=== PATIENT | male | born 1980 | race Caucasian/White ===

== ENCOUNTER → 2021-06-09 11:04 | Outpatient (REF) | payer OTHER, SELFPAY | LOC: ANHLAB 11:04 | PROVIDERS: PCP Emergency Medicine; Visit Provider Nurse Practitioner | DX: R22.9 Localized swelling, mass and lump, unspecified (principal) | CPT/HCPCS: 88304 ==

== ENCOUNTER → 2021-08-06 11:15 | Outpatient (REF) | payer OTHER, SELFPAY | LOC: ANHLAB 11:15 | PROVIDERS: PCP Emergency Medicine; Visit Provider Nurse Practitioner | DX: R22.9 Localized swelling, mass and lump, unspecified (principal) | CPT/HCPCS: 88304 ==

== ENCOUNTER 2024-10-31 15:46 | Outpatient (CLI) | payer OTHER, SELFPAY ==
--- OUTSIDE RECORDS SUMMARY | 2021-03-18 13:22 | XMS_ITS | Continuity of Care Document ---
Author Organization [facility] Address [address] [place] [address] [place] [address] Phone Care Team Providers Care [employer] Consultant Name Role Phone Jaspal Urias MD Unavailable Unavailable Allergies, Adverse Reactions, Alerts Substance Reaction Status Criticality No Known Allergies Active No Inform ation Medications Medication Instructions Dosage Effective Dates (start - stop) Status Comments Nuvigil 50 mg tablet take 2 tablets in t he morning orally every day - Active omeprazole 20 mg capsule,delayed release take 1 capsule by oral route every day before a meal 20 MG - Active Procedures Procedure Date OFFICE/OUTPATIENT VISIT, EST OFFICE/OUTPATIENT VISIT, EST PREV VISIT, NEW, AGE 18-39 Advance Directives Directive Yes / No Effective Date File Name No Information Encounters Encounter Description Practice Location Reason(s) For Visit Diagnoses Date Provider Providers Copied on Encounter OFFICE/OUTPA TIENT VISIT, EST [facility], [address], [id number], tel:[phone] [facility] GERD1 (chief complaint) narcolepsy 1 (chief complaint) lipoma1 (chief complaint) back pain1 (chief complaint) NarcolepsyGERD w/o esophagitisLipomaLu mbago with sciatica, right side 2 Adonay Shay. [address], [id number] , [place]. tel:[phone] OFFICE/OUTPA TIENT VISIT, EST [facility], [address], [id number], [place] tel:[phone] [facility] chronic pain1 (chief complaint) Lumbago with sciatica, right side Sep-0 1 Adonay Shay. [address], [place], [place], [id number] , [place]. tel:[phone] PREV VISIT, NEW, AGE 18-39 [facility], [address], [place], [place], [id number], [place] [phone] [facility] physical (chief complaint) Encounter for general adult medical examination without abnormal findings Aug- 1 Adonay Shay. [address], [place], [place], [id number] , [place]. [phone] Family History Family Member Type Diagnosis Age At Onset Mother Problem Hypertension Brother Problem Alive and well Father Problem Hypertension Sister Problem Alive and well Payers Payer name Insurance type Covered green party ID Authoriza tion(s) No Information Social History Type Description Quantity Date Captured Comments Alcohol Use Details beer & liquor Caffeine Use Details Unknown Tobacco Use Status Current non-smoker Smoking Status Never smoker Sex Male Vital Signs Date / Time: Height Weight BMI Pulse Rate Blood Pressure Temperature Respiratory Rate Body Surface Area Head Circumference BMI percentile Pulse Ox Inhaled Ox 6:24 PM 69.00 in 234.00 lbs 34.5 6 kg/m eter (2) Chief Complaint And Reason For Visit From encounter dated '03/18/2021 18:22'. GERD1 (chief complaint). Description: Pt has chronic GERD for years but worse during last two weeks. Pt has been taking otc meds PRN Pt denies any abd pain or nausea, vomiting. Pt used to take anti-acid but has not had it for long time. narcolepsy1 (chief complaint). Description: Pt has chronic narcolepsy. Pt takes nuvigil and doing ok lipoma1 (chief complaint). Description: Pt has lipoma on left triceps and right flank area for several months but getting bigger and becomes painful. Pt eladio any redness or warmth or swelling or drainage Pt has history of lipoma removal. back pain1 (chief complaint). Description: Pt states that his back pain has improved and he has notnoticed much faviola lately Pt denies any sciatica or any saddle area paresthesia Pt denies any loss of bowel or bladder control Pt did not do MRI Plan Of Treatment Date Type Action Status Referral Ordered: Vishal Kramer -[facility] : Surgery (related to Lipoma) ordered Referral Referred To: Vishal Kramer [id number] [place] [address], [phone] Ordered: Referrals: [facility] : Surgery. Vishal Kramer. Evaluate and treat ordered Referral Ordered: MRI LUMBAR SPINE W/O DYE ordered History Of Present Illness Encounter Date Complaint History Of Prese nt Illness GERD1 Pt has chronic G ERD for years but worse during last two weeks. Pt has been taking otc meds PRN Pt denies any abd pain or nausea, vomiting. Pt used to take anti-acid but has not had it for long time. narcolepsy1 Pt has chronic n arcolepsy. Pt takes nuvigil and doing ok lipoma1 Pt has lipoma on left triceps and right flank area for several months but getting bigger and becomes painful. Pt eladio any redness or warmth or swelling or drainage Pt has history of lipoma removal. back pain1 Pt states that h is back pain has improved and he has not noticed much faviola lately Pt denies any sciatica or any saddle area paresthesia Pt denies any loss of bowel or bladder control Pt did not do MRI chronic pain1 Pt has chronic l ow back pain with right sciatica. Pt sometimes feels right leg weakness. Pt also has chronic right knee pain and IT band issue due to walking. Pt also has history of torn right hamstring. Pt told me he had MRi done of right knee which was normal. Pt suffered above injury during service. Pt was discharged with 90 % disability. Pt has been seeing chiropractor for above pain. Pt suffers from pain daily. Pt has not done MRi yet .Pt denies any saddle area paresthesia Pt denies any loss of bowel or bladder control. Pt needs to renew his [employer] [place] permit. Pt moved here from [place] recently . physical Pt needs annual physical pt has history of narcolepsy which was diagnosed with sleep study with [facility]. Pt has daytime hypersomnia. pt did not have sleep apnea. Pt takes nuvigil 100 mg Q am for the past the past 12 years and doing well. Pt needs refill. Pt c/o acute onset of L-spine and right side paraspinal muscle pain for 6 months after lifting something heavy. Pt notices radiation of pain to right buttock and to posterior thigh intermittently with certain movement. Pt denies any numbness and tingling pt denies any loss of bowel or bladder control. Pt had L spine x ray done by chiropractor and had some adjustment which did not help much., Pt neer tried any medication. Pt denies any leg weakness. pt states that the symptoms bother him every day. Pt denies any other complaints Instructions Date Instruction Additional Infor [place] No Information Assessments Type Assessment Date assessment Narcolepsy assessment GERD w/o esophagitis assessment Lipoma assessment Lumbago with sciatica, right daphney e Mental Status Date Cognitive Assessment Orientation - [place] ed to time, place, person, situation.
--- NOTE | ~2024-10-31 | MR_ITS ---
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 Whole-brain sequences included sagittal T1-weighted FSE, axial diffusion-weighted FS EPI, axial 3D SWAN, axial T2-weighted FLAIR Propeller, and axial T2-weighted Propeller. Small [id number] sequences included sagittal and coronal T1- weighted FSE centered at the pituitary. Postcontrast sequences included small [id number] coronal T1-weighted FSE in a time course and sagittal T1-weighted FSE and whole-brain axial T1-weighted FSE. Apparent diffusion coefficient (ADC) maps were created. COMPARISON: None. FINDINGS: There are no areas of restricted diffusion to suggest acute infarction. No intracranial hemorrhage or abnormal intracranial mass lesion. Pituitary appears normal with homogeneous enhancement throughout the sequence of post contrast imaging and with normal midline pituitary stalk. There are no intraparenchymal signal abnormalities seen on the other pulse sequences. The ventricles are symmetric and normal in size. There are no abnormal extra-axial fluid collections. Flow voids are seen in the cerebral arteries on the T2-weighted sequences consistent with their expected patency. Visualized orbits and soft tissues are unremarkable. There are no areas of abnormal enhancement on the post contrast images. IMPRESSION: 1. Normal MRI of the brain and pituitary gland. Reviewed, dictated and finalized at location A.
--- OUTSIDE RECORDS SUMMARY | 2024-10-31 07:13 | XMS_ITS | Continuity of Care Document ---
Author Name [facility] Organization [facility] Care Team Providers Care Ict Quality Assurance Engineer Name Role Phone [facility] Unavailable Unavailable Problems Combined list of problems from Department of Defense and Veterans Affairs facilities. It does not include entries that were removed or entered in error. Problem Status Onset Date Problem Type Date of Resolution Comments Source Epidermoid cyst of skin Active Condition 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 Major depressive disorder Active Condition [facility] Narcolepsy (SNOMED CT [id number]) Active Condition [facility] Obesity Active Condition Dec 04 13 Entered By: IRA THOMAS Comment: BMI 31 11/2012Sep 2013 Entered By: IRA THOMAS Comment: BMI 33 11/2013 [facility] SLEEP DISTURBANCE NOS Active Condition [facility] dermatitis Active Condition [facility] pityriasis rosea Active Condition Pat ient reassured [facility] pain in the thigh Active Condition [facility] Other Physical Therapy Active Condition DoD limb pain Active Condition DoD hip sprain hamstring insertion right Active Condition SM presents for review of x-rays as well as treatment this am. SM noted to have rotation of pelvic bones and c/o mild pain of lumbar spine as well as chronic right hamstring pain. Lumbo-pelvic gapping technique performed which properly aligned pelvic - no change in symptoms. SM to continue with HEP for hamstring strengthening/s tretching as well as lumbo-sacral stabilization/f lexibility exercises. SM to f/up prn. [facility] Patient Education - Injury Prevention Inactive Condition DoD Guidance: Concerns About Alcohol Use Inactive Condition DoD Guidance: Concerns About Tobacco Use Inactive Condition DoD Guidance: Concerns About Unsafe Sexual Practices Inactive Condition DoD Patient Counseling: Active Condition Do D Inquiry And Counseling: Medication Admin And Compliance Inactive Condition DoD visit for: occupational health / fitness exam Inactive Condition DoD pharyngitis Inactive Condition DoD viral syndrome Inactive Condition DoD visit for: ears / hearing exam Inactive Condition DoD visit for: services physical Active Condition DoD Body Mass Index Inactive Condition DoD Patient Education Dietary Active Condition DoD Observation For Suspected Mental Condition Inactive Condition DoD visit for: physical medical evaluation board (MEB) Active Condition DoD visit for: issue medical certificate Inactive Condition DoD myalgia and myositis Active Condition DoD chronic diarrhea of unknown origin Active Condition DoD chronic pain syndrome Active Condition DoD unspecified muscle strain Inactive Condition DoD dyslipidemia Active Condition DoD vitamin D deficiency Active Condition DoD assess patient condition work-related occupational disease Inactive Condition DoD Patient Education - Proper Use Of Medications Active Condition DoD Patient Education - Pre-Procedure Teaching Active Condition DoD Patient Education - Pain Management Active Condition DoD chronic pain Active Condition DoD muscle spasm Inactive Condition DoD excessive thirst / fluid intake (polydipsia) Active Condition DoD obesity Active Condition DoD headache Inactive Condition DoD eye symptoms Inactive Condition DoD heartburn Active Condition DoD visit for: preoperative gastrointestinal exam Inactive Condition DoD abnormal liver function test Active Condition DoD diarrhea Active Condition DoD bloating Active Condition DoD bursitis olecranon Active Condition DoD cubital tunnel syndrome Active Condition DoD Aftercare Following Surgery Of Digestive System Inactive Condition DoD nausea Inactive Condition DoD hemorrhoids internal Active Condition DoD joint pain, localized in the elbow Active Condition DoD segmental dysfunction of pelvic region Active Condition DoD X-Ray Inactive Condition DoD sacroiliac region sprain Inactive Condition DoD nonallopathic lesions thoracic Active Condition DoD nonallopathic lesions cervical Active Condition DoD lumbosacral plexus lesion Active Condition DoD back strain lumbar Inactive Condition Do D Administrative Evaluation Services Inactive Condition DoD Spectacles Services Fitting Monofocal Except For Aphakia Active Condition DoD conditions influencing health status Active Condition DoD biliary dyskinesia Active Condition DoD visit for: pre-procedural exam Inactive Condition DoD abdominal pain in multiple locations Active Condition DoD nausea with vomiting Inactive Condition DoD difficulty swallowing (dysphagia) Active Condition DoD depression Active Condition DoD Laboratory Studies Inactive Condition Do D visit for: screening exam bact/spirochetal STD Inactive Condition DoD Serum Enzyme Levels - ALT (SGPT) Elevated Active Condition DoD tardive dyskinesia drug-induced Inactive Condition DoD abdominal pain in the central upper belly (epigastric) Active Condition DoD abdominal pain in the right upper belly (RUQ) Active Condition DoD Observation For Suspected Medical Condition Inactive Condition DoD lumbago Active Condition DoD Visual Gray Test Nonspecific Abnormal Findings Active Condition DoD visit for: exam following treatment Active Condition DoD assessment of patient condition work-related Active Condition DoD Observation For Suspected Condition Inactive Condition DoD lower back pain Active Condition DoD Corneal Pigmentation Posterior Active Condition DoD astigmatism Active Condition DoD dysthymic disorder (depressive neurosis) Active Condition DoD narcolepsy Active Condition DoD visit: ears/hearing exam for hearing conservation, treatment Inactive Condition DoD axis V global assess of functioning (GAF) scale ___ (100-0) Active Condition DoD axis IV psychosocial and environmental problems Inactive Condition DoD no psychiatric diagnosis on axis III Inactive Condition DoD no psychiatric diagnosis on axis II Inactive Condition DoD atypical depressive disorder Active Condition DoD abdominal pain Active Condition DoD pruritus ani Active Condition DoD Bridgett thyroiditis (chronic lymphocytic) Active Condition DoD hypothyroidism Active Condition DoD hyperthyroidism Active Condition DoD anemia Active Condition DoD non-neoplastic nevus Active Condition DoD Removal Of Sutures Inactive Condition Do D warts common Active Condition DoD congenital anomalies of skin Active Condition DoD anal fissure Inactive Condition DoD benign skin neoplasm subcutaneous lipoma Inactive Condition DoD visit for: administrative purpose Active Condition DoD hemorrhoids internal with complication bleeding Active Condition DoD nonorganic sleep disorders Active Condition DoD Preventive Medicine Established Patient Checkup Adult 18-39 Years Active Condition DoD fatigue Active Condition DoD tendonitis Active Condition DoD sinusitis Inactive Condition improving. Emphasized need to finish antibiotics DoD backache Active Condition no hx. of trauma. Pt. needs to make appt. for spec. slot. Referred to PT for core strengthening exercises in mean time. Xrays of lumbar spine are neg. F/U in 4-6 or next avail. spec slot for new eval of LBP. DoD hip sprain hamstring insertion Active Condition DoD red blood in bowel movement (hematochezia) Inactive Condition pt is advised to do sitz baths and keep the area clean and dry DoD hemorrhoids Active Condition - Him Specialist al hemorrhoid, non-throbosed with small, non-bleeding fissure. DoD joint pain, localized in the knee Active Condition DoD thigh strain Active Condition DoD rolon splint Active Condition bilatera l, distal tibia. Pt evaluated in my office by Dr Palma, custom orthotics ordered. DoD astigmatism regular Active Condition Do D refractive error - myopia Active Condition DoD Medications Combined list of outpatient medications from Department of Defense and Veterans Affairs facilities.Medications provided include 1) outpatient medications from the last 15 months, and 2) patient-reported medications. Medication Details Route Status Patient Instructions Prescription Expires Prescription Number Last Dispense Date Ordering Provider Order Date Order Qty Source ARMODAFINIL (armodafini l), 250 MG, TABLET, ORAL, SANDOZ, 30 ea. BOTTLE Active [id number] 2023 30 Pharmac y Data Transac tion Service Facilit y Allergies, Adverse Reactions, Alerts Combined list of allergies from Department of Defense and Veterans Affairs facilities. It does not include entries that were removed or entered in error. Substance Category Reaction Severity Reaction type Status Date Reported Comments Source ASPIRIN (ASPIRIN) Drug allergy (disorder) Urticaria active 7 [facility] [place] ASPIRIN RELATED MEDICATIONS Propensity to adverse reactions to drug (finding) Urticaria active [address] [facility] BENTYL (DICYCLOMINE HCL) Drug allergy (disorder) Tardive dyskinesia active [address] [facility], [place] Immunizations Combined list of available immunizations from the Department of Defense and Veterans Affairs facilities. Immunization Series Date Given Administered By Site Reaction Lot Number CVX Code Drug Airplane Navigator Status Comments Source TDAP 2012 115 complet ed .[facility] INFLUENZA, UNSPECIFIED FORMULATION 2012 88 complet ed [place] [facility] influenza virus vaccine, unspecified formulation 1 2011 [id number] [employer] (MED) complet ed influenza virus vaccine, unspecifi ed formulati on DoD Influenza, seasonal, injectable 1 2010 [id number] 141 Unknown (UNK) comple t ed Influenza , seasonal, injectabl e DoD influenza virus vaccine, split virus (incl. purified surface antigen)-reti red CODE 1 2010 UNK 15 Unknown (UNK) comple t ed influenza virus vaccine, split virus (incl. purified surface antigen)- retired CODE DoD typhoid Vi capsular polysaccharid e vaccine 1 2010 [id number] Sanofi Pasteur (PMC) complet ed typhoid Vi capsular polysacch aride vaccine DoD Novel influenza-H1N 1-09, injectable 1 2009 [id number] 127 Other (OTH) complet ed Novel influenza -[id number], injectabl e DoD anthrax vaccine 1 2008 [id number] [employer] [place] ([facility]) complet ed anthrax vaccine DoD influenza virus vaccine, live, attenuated, for intranasal use 1 2008 [id number] MedImmune[employer] Inc. (MED) complet ed influenza virus vaccine, live, attenuate d, for intranasa l use DoD typhoid Vi capsular polysaccharid e vaccine 1 2007 [id number] Sanofi Pasteur (PMC) complet ed typhoid Vi capsular polysacch aride vaccine DoD hepatitis A and hepatitis B vaccine 3 2007 [id number] 104 Sanofi Pasteur (PMC) complet ed hepatitis A and hepatitis B vaccine DoD influenza virus vaccine, live, attenuated, for intranasal use 1 2007 [id number] [employer] (MED) complet ed influenza virus vaccine, live, attenuate d, for intranasa l use DoD hepatitis A and hepatitis B vaccine 2 2006 [id number] 104 Unknown (UNK) complet ed hepatitis A and hepatitis B vaccine DoD measles, mumps and rubella virus vaccine 1 2006 UNK 03 Unknown (UNK) Not Given measles, mumps and rubella virus vaccine DoD varicella virus vaccine 1 2006 UNK 21 Unknown (UNK) Not Given varicella virus vaccine DoD hepatitis A and hepatitis B vaccine 1 2006 [id number] 104 Unknown (UNK) complet ed hepatitis A and hepatitis B vaccine DoD poliovirus vaccine, inactivated 1 2006 [id number] [employer] [place] (SKB) complet ed polioviru s vaccine, inactivat ed DoD meningococcal polysaccharid e (groups A, C, Y and W-135) diphtheria toxoid conjugate vaccine (MCV4P) 1 2006 [id number] 114 Unknown (UNK) comple t ed meningoco ccal polysacch aride (groups A, C, Y and W-135) diphtheri a toxoid conjugate vaccine (MCV4P) DoD tetanus toxoid, reduced diphtheria toxoid, and acellular pertu is vaccine, adsorbed 1 2006 [id number] 115 Unknown (UNK) comple t ed tetanus toxoid, reduced diphtheri a toxoid, and acellular pertussis vaccine, adsorbed DoD Encounters Combined list of: 1) Encounters from Department of Veterans Affairs facilities going backup to the last 18 months, not all VA inpatient encounters are included; 2) Encounters from the Department of Defense facilities going backup to 280 months. Location Location Details Encounter Type Encounter Number Reason For Visit Attending Provider ADM Date DC Date Status Disposition Source [facility] Kenneth N[place]) OUTPAT[place] [id number] [place] TRACE DOZIER 11/23 Released w/o Limitations [facility] [place] [facility] [place]) OUTPATIENT [id number] [facility]- Cold Symptom s (F 03/25) EHSAN LUKE 01/17 Sick at Home/Quarter s [facility] [place] [facility] [place]) OUTPATIENT [id number] P F/U OLGA PALMA 01/19 [facility]ased w/o Limitations [facility] [place]) [facility] [place]) OUTPATIENT [id number] SELF CARE CLASS ONDINA JOHNSON 02/07 Released w/o Limitations [facility] [place]) [facility] [place]) [place] [id number] leg injury ERI HARTLEY Bret 04/03 Released with Work/Duty Limitations [facility] [place] [facility] [place]) [place] [id number] HIP SPRAIN HAMSTRI NG INSERTI ON RIGHT/ evaluat ion DERRELL GARCIA 04/05 Released w/o Limitations [facility] [place] [facility] [place]) [place] [id number] treatme nt WILLIAM DURHAM 04/07 Released w/o Limitations [facility] [place] [facility] [place] [id number] treatme nt WILLIAM DURHAM 04/10 Released w/o Limitations [facility] [place] [facility] [place]) [place] [id number] treatme WILLIAM Glaser 04/14 Released w/o Limitations [facility] [place] [facility] [place] [id number] SKIN RASH ERI HARTLEY 04/14 Released w/o Limitations [facility] [place] [facility] [place] [id number] treatme nt WILLIAM DURHAM 04/17 Released w/o Limitations [facility] [place] [facility] [place] [id number] treatme nt WILLIAM DURHAM 04/21 Released w/o Limitations [facility] [place] [facility] [place] OUTPATIENT [id number] CAROLINA Holland 04/28 Released w/o Limitations [facility] [place] [facility] [place] [id number] routine eye exam MICHELLEOLIVIA AKHIL CHANDA 05/28 Released w/o Limitations [facility] [place] [facility] [place] OUTPATIENT [id number] ([id number]) CHIN PAIN,PU LLED HAMSTRI NG ELIZ ESCOTO 06/25 Released w/o Limitations [facility] [place]) [facility] [place] OUTPATIENT [id number] HQ&A - RIGHT HAMSTRI NG and BILAT ANKLE PAIN DERRELL VAZQUEZ 07/04 Released w/o Limitations [facility] [place] [place] [facility] [place]) [place] [id number] Right hamstri ng pain YONNY BURDEN 07/04 Released with Work/Duty Limitations [facility] [place] [facility] [place]) [place] [id number] right knee YOSI THORNTON 07/06 Released with Work/Duty Limitations [facility] [place] [facility] [place] [id number] right knee YOSI THORNTON 07/11 Released with Work/Duty Limitations [facility] [place] [facility] [place]) [place] [id number] right knee ARTERYOSI KINSEY D 07/13 Released with Work/Duty Limitations [facility] [place] [facility] [place] OUTPATIENT [id number] EAST- [id number] BLEEDIN G HEMMIRO IDS SANDOVAL MYRICK F 07/13 Released w/o Limitations [facility] [place] [place] [id number] right knee YOSI THORNTON D 07/16 Released with Work/Duty Limitations [facility] [place] [facility] [place]) [place] [id number] Right hamstri ng pain BERTRAM, YONNY W 07/23 Released with Work/Duty Limitations [facility] [place] [facility] [place] [id number] Hemorrh oids LE PEDROZA A 07/24 Released w/o Limitations [facility] [place] [facility] [place]) [place] [id number] right knee YOSI THORNTON D 07/26 Released with Work/Duty Limitations [facility] [place] [facility] [place]) [place] [id number] Right hip pain BERTRAM, YONNY W 08/10 Released with Work/Duty Limitations [facility] [place] [facility] [place] [id number] Right hamstri ng pain BERTRAM, YONNY W 09/17 Released with Work/Duty Limitations [facility] [place] [facility] [place] [id number] right knee YOSI THORNTON D 09/18 Released with Work/Duty Limitations [facility] [place] [facility] [place] [id number] right knee ARTERYOSI KINSEY D 09/20 Released with Work/Duty Limitations [facility] [place] [facility] [place] [id number] right knee ARTERYOSI KINSEY D 09/25 Released with Work/Duty Limitations [facility] [place] [facility] [place] [id number] right knee ARTERTIO , YOSI D 09/27 Released with Work/Duty Limitations [facility] [place] [facility] [place] [id number] right knee ARTERTIO , YOSI D 10/02 Released with Work/Duty Limitations [facility] [place] [facility] [place] [id number] right knee ARTERYOSI KINSEY D 10/04 Released with Work/Duty Limitations [facility] [place] [facility] [place] [id number] right knee ARTERYOSI KINSEY D 10/09 Released with Work/Duty Limitations [facility] [place] [facility] [place]) [place] [id number] HIP SPRAIN HAMSTRI NG INSERTI ON RIGHT ELMER RUDDY Berumen 10/09 Released with Work/Duty Limitations [facility] [place] [facility] [place] [id number] right knee ARTERTIO , YOSI D 10/11 Released with Work/Duty Limitations [facility] [place] [facility] [place] [id number] right knee ARTERTIO , YOSI D 10/16 Released with Work/Duty Limitations [facility] [place] [facility] [place]) [place] [id number] Right hamstri ng muscle strain/ pull BERTRAM, YONNY W 10/19 Released with Work/Duty Limitations [facility] [place] [facility] [place] [id number] Right hamstri ng pain BERTRAM, YONNY W 10/23 Released with Work/Duty Limitations [facility] [place] [facility] [place] [id number] huey rt hamstri ng RUDDY PAYNE 10/24 Released with Work/Duty Limitations [facility] [place] [facility] [place] OUTPATIENT [id number] ([id number] )ER F/U [place] MAXWELL 11/01 Released w/o Limitations [facility] [place] [facility] [place] [id number] RUDDY PAYNE 11/22 Released with Work/Duty Limitations [facility] [place]([address]) OUTPATIENT [id number] PT ST UPSET STOMACH /SORE THROAT CORTEZ LEVY 01/21 Sick at Home/Quarter [place] Family Practic e) [place]) OUTPATIENT [id number] left leg strain ROSELYN GARCIA 02/22 Released w/o Limitations [place] Family Practic e) [place] FP Provider Support) OUTPATIENT [id number] pt/sts/ sleep concern LUIS CARLOS MA I 03/19 Released [place]/o Limitations [place] FP Provide r Support ) [place] Support [facility] Family [facility]) OUTPATIENT [id number] PHA Part II KENRICK BLANCA Roderick 03/20 Released w/o Limitations [place] Divisio n Support Command Family Practic e) [place] FP Provider Support) OUTPATIENT [id number] F/U LUIS CARLOS MA I 03/21 Released w/o Limitations [place] Provide r Support ) [place]Pulmon severino Disease[place] OUTPATIENT [id number] LINDSAY CHRIS 03/28 Released [place]o Limitations [place] Disease [place] Family Practice) TELE CONSULT [id number] 25yrs/r eq reffera l/surge ry FLORENTIN VILLALOBOS 04/24 [place] Family Practic e) [place] FP Provider Support) OUTPATIENT [id number] p/st for pulled muscle/ pain/gr XAVI Garcia 04/25 Released with Work/Duty Limitations [place] FP Provide r Support ) [place] [facility] OUTPATIENT [id number] PT STATES EYE EXAM RONNIE JAVIER 04/26 [place]ased [place]/o Limitations [place] ett-Opt [place]metry Clinic) [place] Family Practice AD) OUTPATIENT [id number] ORTIZ López 05/21 [place]ased [place]/o Limitations [place] 1 [facility] Family Practic e AD) [place] [id number] PER CONSULT ERIKA RIVAS 05/28 [place]ased [place]o Lim[place] Health [facility] Family Practice) OUTPATIENT [id number] FUP DESTINY SANABRIATON FLORENTIN Audrey 06/03 Released w/o Limitations [place] et Health [facility] 1 [facility] Family Practic e) [place] Family Practice AD) OUTPATIENT [id number] mole removal ORTIZ PETERSON 06/06 Released w/o Limitations [place] 1 [facility] Family Practic e AD) [place] 1 [facility] Practice AD) OUTPATIENT [id number] Suture removal ORTIZ PETERSON 06/13 Released w/o Limitations [place] 1 [facility] Family Practic e AD) [place], [place] [address](Sle ep Disorder [facility]) OUTPATIENT [id number] LINDSAY CHRIS 06/26 Released w/o Limitations [facility] [place] [address](S buster Disorde r [facility]) [place]) [place]PATIENT [id number] PHA/CON FIRMED FORM TENA BOWLES 06/28 Released [place]/o [place]) [place] [id number] f/u ERIKA RIVAS 07/17 [place]ased [place]) [place] [id number] f/u [phone] ERIKA RIVAS 08/30 [place]ased [place]) OUTPATIENT [id number] hyperth yrike BUENOCHANTELCELESTINO OLEA 11/20 [place] w/[place]itations [place] [id number] thyroid disorde r NINFA BROWN 01/20 [place] TELE CONSULT [id number] results NINFA BROWN 01/24 [place]) [place] [id number] interna l hemorrh oids/21 [phone] JACQUELINE KING 02/03 [place]ased [place] TELE CONSULT [id number] NINFA BROWN 02/17 [place] [facility] OUTPATIENT [id number] 12/07 Released w/o Limitations [place]PATIENT [id number] pre-d/t JACINDA Scott 03/26 [place] [place] [facility] [place]) [place] [id number] AXIS V GLOBAL ASSESS OF FUNCTIO BLANCA (GAF) SCALE ___ (100-0) NINFA BROWN 04/20 [place] [place] [facility]IENT [id number] ps for eye exam DELETED_VE [address] 05/04 [place] [facility] TELE CONSULT [id number] RMB/CB 1st report from a special ist has been scanned in moshea NINFA Thomas 05/07 [place] [place] [id number] PT STATES JASPER ARELLANO 05/15 Released with Work/Duty Limitations [place] [id number] JACQUELINE RODAS 05/18 [place] OUTPATIENT [id number] pt st dfe DELETED_[address] 05/26 [place] [place] [place] OUTPATIENT [id number] PT ST D-15 COLOR CATH EYE SEPARAT PORFIRIO &30-2VF DELETED_VE [address] 05/28 [place] [place] OUTPATIENT [id number] pt st gdx results repeat 30-2 vf DELETED_[address] 05/29 [place] [place]) [place] [id number] S/ BK CLASS WILLYAKHIL YI Kirsten 06/18 [place]) [place] [id number] DENEEN BRUCEМАРИНА Powers 07/18 [place] [id number] abdomin al pain LIZZIELUDWINTRISHJANY FORRESTSLY Berumen 07/18 [place] [id number] KO MONDRAGON 07/20 [place]) [place] [id number] STACIE FUENTES JR 07/23 [place]) OUTPATIENT [id number] ultraso und result BLANCA CHOUDHARY T 07/24 Released with Work/Duty [place]) OUTPATIENT [id number] trimber on the rightis de ASHLEY MARTINEZ V 07/28 [place]ick [place] Home[place]) OUTPATIENT [id number] pt state stomach pains and f/u for labs MC BARNES 07/30 [place]) OUTPATIENT [id number] abdomin al pain BLANCA CHOUDHARY T 08/05 Released with Work/Duty Limitations [place] TELE CONSULT [id number] NINFA BROWN 08/11 [place] [id number] f/u NINFA BROWN 08/11 [place] [id number] MIKEY MCBRIDE 08/13 [place]) OUTPATIENT [id number] phyical therapp y CHA GAMBLE 08/17 [place] [id number] red blood in bowel movemen t (hemato chezia) ARMANDO BOYER 08/26 [place]itations [place] [place]) [place] [id number] EGD / Colonos copy - nurse visit / ROSMERY Malik V 08/31 [place] [place] TELE CONSULT [id number] NINFA BROWN 09/03 [place]LE CONSULT [id number] call pt about abnorma l HIDA results ARMANDO BOYER 09/03 [place]) [place] [id number] F/U APPT KEVINNINFA Bridgette 09/16 [place]itations [place]) [place] [id number] BILIARY DYSKINE LUCIO ZENA CABRERA 09/22 [place] [id number] colon/e gd IRA FELDMAN 09/29 [place] [place] TELE CONSULT [id number] Post procedu re call back. TONEY BOTELLO 09/30 [place] Appointment [place] [id number] SPEC REPAIR DELETED_VE [address] 10/23 [place] [place] [place]) OUTPATIENT [id number] profile BLANCA CHOUDHARY 10/28 Released with Work/Duty Limitations [place]) [place] [id number] BACKACH E/ AKUA DICKERSON 10/29 [place] [id number] follow up / results ARMANDO BOYER 11/04 [place]o [place]itations [place] [id number] preop DOS:Nov 15 ZENA CABRERA 11/12 [place] [id number] SPEC BRITTNEY MCCLELLAND 12/01 [place]itations [place] [id number] postop/ sils ZENA Sexton 12/02 [place] [id number] CHANDA KIRK 12/04 [place]itations [place] [id number] NEIL ROMANO 12/07 [place]itations [place] [id number] MIKEY MCBRIDE 12/15 [place] Limitations [place] [id number] epigast fabi pain ZENA CABRERA 12/30 [place]itations [place] TELE CONSULT [id number] Pt states symptom s are still present even after removal of gallbla dder. ZENA CABRERA 01/07 [place]) OUTPATIENT [id number] f/up xrays TRAVIS BULLOCK JR 01/11 Released with Work/Duty Limitations [place] [id number] f/u AKUA DICKERSON 01/12 [place]o [place]itations [place] [id number] f/u per provide NINFA Abdalla 01/19 [place]ased w/o Limitations [place] [id number] follow up ARMANDO BOYER 01/27 [place]o Limitations [place] [place] TELE CONSULT [id number] NINFA BROWN 02/01 [place] OUTPATIENT [id number] follow up/ profile GAYLEMARISELA 02/01 [place]itations [place] [id number] nurse visit / egd IRA FELDMAN 02/08 [place]o Limitations [place] OUTPATIENT [id number] results /profil e TRAVIS BULLOCK JR 02/12 Released with Work/Duty Limitations [place] TELE CONSULT [id number] NINFA BROWN 02/15 [place] TELE CONSULT [id number] NINFA BROWN 03/02 [place]) OUTPATIENT [id number] profile update MELISSA WONG 03/04 [place] w[place]itations [place] [id number] EGD / VAA ROSMERY TOVAR V 03/09 [place]itations [place] [place] TELE CONSULT [id number] postop phone follow up for EGD. JAIME WARE 03/10 [place] App[place]ment [place] TELE CONS[place] [id number] NINFA BROWN 03/29 [place] [id number] follow up ARMANDO BOYER 03/30 [place]ased w[place]o Limitations [place] [place] TELE CONSULT [id number] LAB RESULTS NINFA BROWN 04/07 [place]) OUTPATIENT [id number] per TRAVIS Hahn JR 04/09 Released with Work/Duty Limitations [place] [place] [id number] S/ EYE EX SEALSAE A 04/15 [place]itations [place] TELE CONSULT [id number] NINFA BROWN P 04/19 [place] [id number] f/u NINFA BROWN 04/21 [place]ased w/o Limitations [place] TELE CONSULT [id number] NINFA BROWN 05/23 [place] TELE CONSULT [id number] NINFA BROWN 05/30 [place]) OUTPATIENT [id number] PROFILE RENEWAL TRAVIS BULLOCK JR 06/03 Released with Work/Duty Limitations [place] [id number] follow upARMANDO BO 06/07 [place]o Limitations [place] OUTPATIENT [id number] PRB PRE-REQ MARISELA GAYLE 06/09 [place]itations [place] OUTPATIENT [id number] ABDOMIN AL PAIN THE RIGHT UPPER BELLY RUBEN MENJIVAR 06/15 [place]ased [place] [place] [id number] WALK-IN ROBBI VARGHESE 06/20 [place]itations [place] [id number] LUIS CARLOS MCKAY 06/23 [place]ased w[place]o Limitations [place]) OUTPATIENT [id number] PROFILE RENEWAL TRAVIS BULLOCK JR 07/01 Released with Work/Duty Limitations [place] [id number] 1 month follow up ARMANDO BOYER 07/06 [place]ased w/o Limitations [place] [id number] F/U TRAVIS DEWITT JR 08/02 [place] w/o Limitations [place] [place] [id number] *n-v / flex sig / IRA Koehler 08/15 [place]ased w/o Limitations [place] [place]PATIENT [id number] EYE EXAM DELETED_VE [address] 08/31 [place]ased w[place]o Limitations [place] [facility] [id number] flex/si ROSMERY Dupree V 09/14 [place]ased w[place] Limitations [place] [place] TELE CONSULT [id number] Notes Entered by: JAIME AVELAR 17 Sep 2011 1044 ------- ------- ------- ------- -- Post procedu re follow up call JAIME AVELAR 09/16 [place] Appointment [place] OUTPATIENT [id number] Per RUBEN Hdez 10/28 [place]ased [place]itations [place] [place] OUTPATIENT [id number] Proc per MAJ Menjivar - daiana trigger pt under ultraso und RUBEN MENJIVAR 11/11 [place]ick [place] Home[place] [place] [id number] f/u ARMANDO Contreras 11/11 [place]ased w[place]o [place]itations [place] [id number] TRAVIS HOWARD JR 12/20 [place]ased [place]/o [place]itations [place] [place] OUTPATIENT [id number] F/U RUBEN MENJIVAR 01/11 [place]ased [place]itations [place] [place] [id number] Abdomin al wall strain/ NARSUM PER BRITTANY SHANKAR 01/30 Released with Work/Duty Limitations [place]PATIENT [id number] IPR PER BIBI FAITH 03/16 [place]ased [place]o Limitations [place] OUTPATIENT [id number] RFA-RUQ neuroma RUBEN MENJIVAR 04/10 [place] [place]) [place] [id number] Observa tion For Suspect ed Mental Conditi on KAYKAY WRIGHTLUDWIN Berumen 04/17 [place]o [place]itations [place]PAT[place] [id number] Notes Entered by: PRO DELUCA 09 Aug 2012 1458 ------- ------- ------- ------- -- annual ROBBI VARGHESE JR 08/09 [place]ased w/o Limitations [place] Procedures Combined list of: 1) Procedures from Department of Veterans Affairs facilities going back up to thelast 18 months, not all VA non-surgical procedures are included; 2) All procedures from the Department of Defense facilities. Procedure Procedure Type Code Date Perfomer Panchito Reed e POLYSOMNOGRAPHY; AGE 6 YEARS OR OLDER, SLEEP STAGING WITH 4 OR MORE ADDITIONAL PARAMETERS OF SLEEP, ATTENDED BY A TECHNOLOGIST 2008 [facility] THERAPEUTIC PROCEDURE, 1 OR MORE AREAS, EACH 15 MINUTES; THERAPEUTIC EXERCISES TO DEVELOP STRENGTH AND ENDURANCE, RANGE OF MOTION AND FLEXIBILITY 2007 [facility] THERAPEUTIC PROCEDURE, 1 OR MORE AREAS, EACH 15 MINUTES; THERAPEUTIC EXERCISES TO DEVELOP STRENGTH AND ENDURANCE, RANGE OF MOTION AND FLEXIBILITY 2007 [facility] APPLICATION OF A MODALITY TO 1 OR MORE AREAS; HOT OR COLD PACKS 2007 [facility] THERAPEUTIC PROCEDURE, 1 OR MORE AREAS, EACH 15 MINUTES; THERAPEUTIC EXERCISES TO DEVELOP STRENGTH AND ENDURANCE, RANGE OF MOTION AND FLEXIBILITY 2007 [facility] THERAPEUTIC PROCEDURE, 1 OR MORE AREAS, EACH 15 MINUTES; THERAPEUTIC EXERCISES TO DEVELOP STRENGTH AND ENDURANCE, RANGE OF MOTION AND FLEXIBILITY 2007 [facility] THERAPEUTIC PROCEDURE, 1 OR MORE AREAS, EACH 15 MINUTES; THERAPEUTIC EXERCISES TO DEVELOP STRENGTH AND ENDURANCE, RANGE OF MOTION AND FLEXIBILITY 2007 [facility] EDUCATIONAL SUPPLIES, SUCH BOOKS, TAPES, AND PAMPHLETS, FOR THE PATIENT'S EDUCATION AT COST TO PHYSICIAN OR OTHER QUALIFIED HEALTH HAND PACKER/PACKAGER 2006 [facility] TAPE, WATERPROOF, PER 18 SQUARE INCHES 2007 [facility] PHYSICAL THERAPY RE-EVALUATION 2007 [facility] THERAPEUTIC PROCEDURE, 1 OR MORE AREAS, EACH 15 MINUTES; THERAPEUTIC EXERCISES TO DEVELOP STRENGTH AND ENDURANCE, RANGE OF MOTION AND FLEXIBILITY 2007 [facility] THERAPEUTIC PROCEDURE, 1 OR MORE AREAS, EACH 15 MINUTES; THERAPEUTIC EXERCISES TO DEVELOP STRENGTH AND ENDURANCE, RANGE OF MOTION AND FLEXIBILITY 2007 [facility] THERAPEUTIC PROCEDURE, 1 OR MORE AREAS, EACH 15 MINUTES; THERAPEUTIC EXERCISES TO DEVELOP STRENGTH AND ENDURANCE, RANGE OF MOTION AND FLEXIBILITY 2007 [facility] THERAPEUTIC PROCEDURE, 1 OR MORE AREAS, EACH 15 MINUTES; THERAPEUTIC EXERCISES TO DEVELOP STRENGTH AND ENDURANCE, RANGE OF MOTION AND FLEXIBILITY 2007 [facility] APPLICATION OF A MODALITY TO 1 OR MORE AREAS; HOT OR COLD PACKS 2007 [facility]D APPLICATION OF A MODALITY TO 1 OR MORE AREAS; ELECTRICAL STIMULATION (MANUAL), EACH 15 MINUTES 2007 [facility] APPLICATION OF A MODALITY TO 1 OR MORE AREAS; HOT OR COLD PACKS 2007 DoD APPLICATION OF A MODALITY TO 1 OR MORE AREAS; HOT OR COLD PACKS 2007 [facility]D APPLICATION OF A MODALITY TO 1 OR MORE AREAS; HOT OR COLD PACKS 2007 [facility] PHYSICAL THERAPY RE-EVALUATION 2007 [facility] PHYSICAL THERAPY RE-EVALUATION 2007 [facility] SIGMOIDOSCOPY, FLEXIBLE; DIAGNOSTIC, INCLUDING COLLECTION OF SPECIMEN(S) BY BRUSHING OR WASHING, WHEN PERFORMED (SEPARATE PROCEDURE) 2007 [facility] PHYSICAL THERAPY RE-EVALUATION 2007 [facility] APPLICATION OF A MODALITY TO 1 OR MORE AREAS; HOT OR COLD PACKS 2007 [facility] APPLICATION OF A MODALITY TO 1 OR MORE AREAS; ULTRASOUND, EACH 15 MINUTES 2007 [facility] APPLICATION OF A MODALITY TO 1 OR MORE AREAS; HOT OR COLD PACKS 2007 DoD APPLICATION OF A MODALITY TO 1 OR MORE AREAS; HOT OR COLD PACKS 2007 DoD APPLICATION OF A MODALITY TO 1 OR MORE AREAS; HOT OR COLD PACKS 2007 DoD PHYSICAL THERAPY EVALUATION 2007 DoD FITTING OF SPECTACLES, EXCEPT FOR APHAKIA; MONOFOCAL 2007 DoD HANDLING AND/OR CONVEYANCE OF SPECIMEN FOR TRANSFER FROM THE PATIENT IN OTHER THAN AN OFFICE TO A LABORATORY (DISTANCE MAY BE INDICATED) 2006 DoD PATIENT EDUCATION, NOT OTHERWISE CLASSIFIED, NON-PHYSICIAN PROVIDER, GROUP, PER SESSION 2006 DoD PATIENT EDUCATION, NOT OTHERWISE CLASSIFIED, NON-PHYSICIAN PROVIDER, GROUP, PER SESSION 2006 [facility] HEPATITIS A AND HEPATITIS B VACCINE (HEPA-HEPB), ADULT DOSAGE, FOR INTRAMUSCULAR USE 2006 DoD PATIENT EDUCATION, NOT OTHERWISE CLASSIFIED, NON-PHYSICIAN PROVIDER, GROUP, PER SESSION 2006 [facility] BUPRENORPHINE IMPLANT, 74.2 MG 2006 DoD FITTING OF SPECTACLES, EXCEPT FOR APHAKIA; MONOFOCAL 2006 DoD AUDIOMETRIC TESTING OF GROUPS 2012 DoD PSYCHOTHERAPY, 30 MINUTES WITH PATIENT WHEN PERFORMED WITH AN EVALUATION AND MANAGEMENT SERVICE (LIST SEPARATELY IN ADDITION TO THE CODE FOR PRIMARY PROCEDURE) 2012 DoD PSYCHOTHERAPY, 45 MINUTES WITH PATIENT 2012 [facility] MEDICAL NUTRITION THERAPY; GROUP (2 OR MORE INDIVIDUAL(S)), EACH 30 MINUTES 2012 DoD INJECTION, TRIAMCINOLONE ACETONIDE, NOT OTHERWISE SPECIFIED, 10 MG 2012 DoD PSYCHIATRIC DIAGNOSTIC EVALUATION 2012 [facility] PSYCHIATRIC DIAGNOSTIC EVALUATION WITH MEDICAL SERVICES 2012 DoD PSYCHIATRIC DIAGNOSTIC EVALUATION WITH MEDICAL SERVICES 2012 DoD INJECTION, TRIAMCINOLONE ACETONIDE, NOT OTHERWISE SPECIFIED, 10 MG 2011 DoD COORDINATED CARE FEE, MAINTENANCE RATE 2011 DoD UNLISTED SPECIAL SERVICE, PROCEDURE OR REPORT 2011 DoD FITTING OF SPECTACLES, EXCEPT FOR APHAKIA; MONOFOCAL 2011 DoD INDIVIDUAL PSYCHOTHERAPY, INSIGHT ORIENTED, BEHAVIOR MODIFYING AND/OR SUPPORTIVE, IN AN OFFICE OR OUTPATIENT FACILITY, APPROXIMATELY 45 TO 50 MINUTES [id number] W THE PATIENT; W MED EVAL & MGT SER 2011 DoD COORDINATED CARE FEE, MAINTENANCE RATE 2011 DoD INDIVIDUAL PSYCHOTHERAPY, INSIGHT ORIENTED, BEHAVIOR MODIFYING AND/OR SUPPORTIVE, IN AN OFFICE OR OUTPATIENT FACILITY, APPROXIMATELY 45 TO 50 MINUTES [id number] W THE PATIENT; W MED EVAL & MGT SER 2011 DoD AUDIOMETRIC TESTING OF GROUPS 2011 DoD COORDINATED CARE FEE, MAINTENANCE RATE 2011 DoD TELE ASSESS & MGT SRV PROV QUAL NONPHYS HLTH CARE PRO TO EST PAT,PARENT,GUARD NOT ORIG REL ASSESS & MGT SRV PROV W/IN PREV 7 DAYS NOR LEAD ASSESS & MGT SRV/PX W/IN NXT 24 HR/SOON APT;5-10 MIN MED DIS 2011 DoD INDIVIDUAL PSYCHOTHERAPY, INSIGHT ORIENTED, BEHAVIOR MODIFYING AND/OR SUPPORTIVE, IN AN OFFICE OR OUTPATIENT FACILITY, APPROXIMATELY 45 TO 50 MINUTES [id number] W THE PATIENT; W MED EVAL & MGT SER 2011 DoD TELE ASSESS & MGT SRV PROV QUAL NONPHYS HLTH CARE PRO TO EST PAT,PARENT,GUARD NOT ORIG REL ASSESS & MGT SRV PROV W/IN PREV 7 DAYS NOR LEAD ASSESS & MGT SRV/PX W/IN NXT 24 HR/SOON APT;5-10 MIN MED DIS 2011 DoD TELE ASSESS & MGT SRV PROV QUAL NONPHYS HLTH CARE PRO TO EST PAT,PARENT,GUARD NOT ORIG REL ASSESS & MGT SRV PROV W/IN PREV 7 DAYS NOR LEAD ASSESS & MGT SRV/PX W/IN NXT 24H/SOON APT; 11-20 MIN MED DIS 2011 DoD DETERMINATION OF REFRACTIVE STATE 2011 DoD COORDINATED CARE FEE, MAINTENANCE RATE 2011 DoD INDIVIDUAL PSYCHOTHERAPY, INSIGHT ORIENTED, BEHAVIOR MODIFYING AND/OR SUPPORTIVE, IN AN OFFICE OR OUTPATIENT FACILITY, APPROXIMATELY 45 TO 50 MINUTES [id number] W THE PATIENT; W MED EVAL & MGT SER 2011 DoD COORDINATED CARE FEE, MAINTENANCE RATE 2011 DoD UNLISTED SPECIAL SERVICE, PROCEDURE OR REPORT 2011 DoD INDIVIDUAL PSYCHOTHERAPY, INSIGHT ORIENTED, BEHAVIOR MODIFYING AND/OR SUPPORTIVE, IN AN OFFICE OR OUTPATIENT FACILITY, APPROXIMATELY 45 TO 50 MINUTES [id number] WITH THE PATIENT 2010 DoD COORDINATED CARE FEE, MAINTENANCE RATE 2010 DoD INDIVIDUAL PSYCHOTHERAPY, INSIGHT ORIENTED, BEHAVIOR MODIFYING AND/OR SUPPORTIVE, IN AN OFFICE OR OUTPATIENT FACILITY, APPROXIMATELY 45 TO 50 MINUTES [id number] W THE PATIENT; W MED EVAL & MGT SER 2010 DoD COORDINATED CARE FEE, MAINTENANCE RATE 2010 DoD POSTOPERATIVE FOLLOW-UP VISIT, NORMALLY INCLUDED IN THE SURGICAL PACKAGE, INDICATE THAT EVALUATION & MANAGEMENT SERVICE WAS PERFORMED DURING A POSTOPERATIVE PERIOD REASON RELATED ORIGINAL PROCEDURE 2010 DoD INDIVIDUAL PSYCHOTHERAPY, INSIGHT ORIENTED, BEHAVIOR MODIFYING AND/OR SUPPORTIVE, IN AN OFFICE OR OUTPATIENT FACILITY, APPROXIMATELY 45 TO 50 MINUTES [id number] WITH THE PATIENT 2010 DoD INJECTION, MORPHINE SULFATE, UP TO 10 MG 2010 DoD INDIVIDUAL PSYCHOTHERAPY, INSIGHT ORIENTED, BEHAVIOR MODIFYING AND/OR SUPPORTIVE, IN AN OFFICE OR OUTPATIENT FACILITY, APPROXIMATELY 45 TO 50 MINUTES [id number] W THE PATIENT; W MED EVAL & MGT SER 2010 DoD INTRAVENOUS INFUSION, HYDRATION; INITIAL, 31 MINUTES TO 1 HOUR 2010 DoD EXERCISE EQUIPMENT 2010 DoD INDIVIDUAL PSYCHOTHERAPY, INSIGHT ORIENTED, BEHAVIOR MODIFYING AND/OR SUPPORTIVE, IN AN OFFICE OR OUTPATIENT FACILITY, APPROXIMATELY 45 TO 50 MINUTES [id number] WITH THE PATIENT 2010 DoD COORDINATED CARE FEE, MAINTENANCE RATE 2010 DoD UNLISTED SPECIAL SERVICE, PROCEDURE OR REPORT 2010 DoD INDIVIDUAL PSYCHOTHERAPY, INSIGHT ORIENTED, BEHAVIOR MODIFYING AND/OR SUPPORTIVE, IN AN OFFICE OR OUTPATIENT FACILITY, APPROXIMATELY 45 TO 50 MINUTES [id number] WITH THE PATIENT 2010 [facility] APPLICATION OF A MODALITY TO 1 OR MORE AREAS; HOT OR COLD PACKS 2010 DoD REPAIR AND REFITTING SPECTACLES; EXCEPT FOR APHAKIA 2010 DoD TELE ASSESS & MGT SRV PROV QUAL NONPHYS HLTH CARE PRO TO EST PAT,PARENT,GUARD NOT ORIG REL ASSESS & MGT SRV PROV W/IN PREV 7 DAYS NOR LEAD ASSESS & MGT SRV/PX W/IN NXT 24 HR/SOON APT;5-10 MIN MED DIS 2010 DoD TELE ASSESS & MGT SRV PROV QUAL NONPHYS HLTH CARE PRO TO EST PAT,PARENT,GUARD NOT ORIG REL ASSESS & MGT SRV PROV W/IN PREV 7 DAYS NOR LEAD ASSESS & MGT SRV/PX W/IN NXT 24 HR/SOON APT;5-10 MIN MED DIS 2010 DoD UNLISTED SPECIAL SERVICE, PROCEDURE OR REPORT 2010 DoD INDIVIDUAL PSYCHOTHERAPY, INSIGHT ORIENTED, BEHAVIOR MODIFYING AND/OR SUPPORTIVE, IN AN OFFICE OR OUTPATIENT FACILITY, APPROXIMATELY 45 TO 50 MINUTES [id number] WITH THE PATIENT 2010 DoD INDIVIDUAL PSYCHOTHERAPY, INSIGHT ORIENTED, BEHAVIOR MODIFYING AND/OR SUPPORTIVE, IN AN OFFICE OR OUTPATIENT FACILITY, APPROXIMATELY 20 TO 30 MINUTES [id number] W THE PATIENT; W MED EVAL & MGT SER 2010 DoD TELE ASSESS & MGT SRV PROV QUAL NONPHYS TH CARE PRO TO EST PAT,PARENT,GUARD NOT ORIG REL ASSESS & MGT SRV PROV W/IN PREV 7 DAYS NOR LEAD ASSESS & MGT SRV/PX W/IN NXT 24 HR/SOON APT;5-10 MIN MED DIS 2010 DoD INDIVIDUAL PSYCHOTHERAPY, INSIGHT ORIENTED, BEHAVIOR MODIFYING AND/OR SUPPORTIVE, IN AN OFFICE OR OUTPATIENT FACILITY, APPROXIMATELY 45 TO 50 MINUTES [id number] WITH THE PATIENT 2010 DoD INJECTION, DIPHENHYDRAMINE HCL, UP TO 50 MG 2010 DoD SKIN TEST; TUBERCULOSIS, INTRADERMAL 2010 DoD SCREENING TEST OF VISUAL ACUITY, QUANTITATIVE, BILATERAL 2010 DoD INDIVIDUAL PSYCHOTHERAPY, INSIGHT ORIENTED, BEHAVIOR MODIFYING AND/OR SUPPORTIVE, IN AN OFFICE OR OUTPATIENT FACILITY, APPROXIMATELY 20 TO 30 MINUTES [id number] W THE PATIENT; W MED EVAL & MGT SER 2010 DoD COLLECTION OF VENOUS BLOOD BY VENIPUNCTURE 2010 DoD ULTRASOUND, ABDOMINAL, REAL TIME WITH IMAGE DOCUMENTATION; LIMITED (EG, SINGLE ORGAN, QUADRANT, FOLLOW-UP) 2010 DoD INTRODUCTION OF NEEDLE OR INTRACATHETER, VEIN 2010 DoD INDIVIDUAL PSYCHOTHERAPY, INSIGHT ORIENTED, BEHAVIOR MODIFYING AND/OR SUPPORTIVE, IN AN OFFICE OR OUTPATIENT FACILITY, APPROXIMATELY 20 TO 30 MINUTES [id number] W THE PATIENT; W MED EVAL & MGT SER 2010 DoD EDUCATION &TRAINING, PATIENT SELF-MGT QUALIFIED, NONPHYSICIAN HEALTH HAND PACKER/PACKAGER USING STANDARDIZED CURRICULUM, [id number] W THE PATIENT (COULD INCL CAREGIVER/FAMILY) EA 30 MIN; 5-8 PATIENTS 2010 DoD INDIVIDUAL PSYCHOTHERAPY, INSIGHT ORIENTED, BEHAVIOR MODIFYING AND/OR SUPPORTIVE, IN AN OFFICE OR OUTPATIENT FACILITY, APPROXIMATELY 45 TO 50 MINUTES [id number] WITH THE PATIENT 2010 DoD INDIVIDUAL PSYCHOTHERAPY, INSIGHT ORIENTED, BEHAVIOR MODIFYING AND/OR SUPPORTIVE, IN AN OFFICE OR OUTPATIENT FACILITY, APPROXIMATELY 75 TO 80 MINUTES [id number] WITH THE PATIENT 2010 DoD INDIVIDUAL PSYCHOTHERAPY, INSIGHT ORIENTED, BEHAVIOR MODIFYING AND/OR SUPPORTIVE, IN AN OFFICE OR OUTPATIENT FACILITY, APPROXIMATELY 45 TO 50 MINUTES [id number] WITH THE PATIENT 2010 DoD SCANNING COMPUTERIZED OPHTHALMIC DIAGNOSTIC IMAGING, POSTERIOR SEGMENT, WITH INTERPRETATION AND REPORT, UNILATERAL OR BILATERAL; OPTIC NERVE 2010 [facility] VISUAL FIELD EXAM,UNILAT/BI,INTE RP&REP;EXT EXM(EG,GOLDMANN VIS FLD,AT LEAST 3 ISOP PLOT&STAT DET W/IN TAI 30DEG/QUANT,AUTO THRSH SEVERIANO,OCT G-1,32/42,HUMP VIS FLD ANAL FULL THRSH 30-2,24-2, OR 3060-2) 2010 [facility] OPHTHALMOLOGICAL SERVICES: MEDICAL EXAMINATION AND EVALUATION, WITH INITIATION OR CONTINUATION OF DIAGNOSTIC AND TREATMENT PROGRAM; COMPREHENSIVE, ESTABLISHED PATIENT, 1 OR MORE VISITS 2010 [facility] INDIVIDUAL PSYCHOTHERAPY, INSIGHT ORIENTED, BEHAVIOR MODIFYING AND/OR SUPPORTIVE, IN AN OFFICE OR OUTPATIENT FACILITY, APPROXIMATELY 45 TO 50 MINUTES [id number] WITH THE PATIENT 2010 DoD PSYCHIATRIC DIAGNOSTIC INTERVIEW EXAMINATION 2010 DoD INDIVIDUAL PSYCHOTHERAPY, INSIGHT ORIENTED, BEHAVIOR MODIFYING AND/OR SUPPORTIVE, IN AN OFFICE OR OUTPATIENT FACILITY, APPROXIMATELY 45 TO 50 MINUTES [id number] WITH THE PATIENT 2010 [facility] FITTING OF SPECTACLES, EXCEPT FOR APHAKIA; MONOFOCAL 2010 DoD INDIVIDUAL PSYCHOTHERAPY, INSIGHT ORIENTED, BEHAVIOR MODIFYING AND/OR SUPPORTIVE, IN AN OFFICE OR OUTPATIENT FACILITY, APPROXIMATELY 45 TO 50 MINUTES [id number] WITH THE PATIENT 2010 DoD INDIVIDUAL PSYCHOTHERAPY, INSIGHT ORIENTED, BEHAVIOR MODIFYING AND/OR SUPPORTIVE, IN AN OFFICE OR OUTPATIENT FACILITY, APPROXIMATELY 45 TO 50 MINUTES [id number] WITH THE PATIENT 2010 DoD INDIVIDUAL PSYCHOTHERAPY, INSIGHT ORIENTED, BEHAVIOR MODIFYING AND/OR SUPPORTIVE, IN AN OFFICE OR OUTPATIENT FACILITY, APPROXIMATELY 45 TO 50 MINUTES [id number] WITH THE PATIENT 2010 DoD INDIVIDUAL PSYCHOTHERAPY, INSIGHT ORIENTED, BEHAVIOR MODIFYING AND/OR SUPPORTIVE, IN AN OFFICE OR OUTPATIENT FACILITY, APPROXIMATELY 45 TO 50 MINUTES [id number] WITH THE PATIENT 2010 DoD INDIVIDUAL PSYCHOTHERAPY, INSIGHT ORIENTED, BEHAVIOR MODIFYING AND/OR SUPPORTIVE, IN AN OFFICE OR OUTPATIENT FACILITY, APPROXIMATELY 45 TO 50 MINUTES [id number] WITH THE PATIENT 2010 [facility] INDIVIDUAL PSYCHOTHERAPY, INSIGHT ORIENTED, BEHAVIOR MODIFYING AND/OR SUPPORTIVE, IN AN OFFICE OR OUTPATIENT FACILITY, APPROXIMATELY 45 TO 50 MINUTES [id number] WITH THE PATIENT 2010 [facility] INDIVIDUAL PSYCHOTHERAPY, INSIGHT ORIENTED, BEHAVIOR MODIFYING AND/OR SUPPORTIVE, IN AN OFFICE OR OUTPATIENT FACILITY, APPROXIMATELY 45 TO 50 MINUTES [id number] W THE PATIENT; W MED EVAL & MGT SER 2010 [facility] INDIVIDUAL PSYCHOTHERAPY, INSIGHT ORIENTED, BEHAVIOR MODIFYING AND/OR SUPPORTIVE, IN AN OFFICE OR OUTPATIENT FACILITY, APPROXIMATELY 45 TO 50 MINUTES [id number] WITH THE PATIENT 2010 [facility] AUDIOMETRIC TESTING OF GROUPS 2010 [facility] INDIVIDUAL PSYCHOTHERAPY, INSIGHT ORIENTED, BEHAVIOR MODIFYING AND/OR SUPPORTIVE, IN AN OFFICE OR OUTPATIENT FACILITY, APPROXIMATELY 20 TO 30 MINUTES [id number] WITH THE PATIENT 2010 [facility] TYPHOID VACCINE, ACETONE-KILLED, DRIED (AKD), FOR SUBCUTANEOUS USE (U.S. ) 2010 [facility] ANOSCOPY; DIAGNOSTIC, INCLUDING COLLECTION OF SPECIMEN(S) BY BRUSHING OR WASHING, WHEN PERFORMED (SEPARATE PROCEDURE) 2008 [facility] ANTHRAX VACCINE, FOR SUBCUTANEOUS OR INTRAMUSCULAR USE 2008 [facility] AUDIOMETRIC TESTING OF GROUPS 2008 [facility] SCREENING TEST OF VISUAL ACUITY, QUANTITATIVE, BILATERAL 2008 [facility] EXCISION, BENIGN LESION INCLUDING MARGINS, EXCEPT SKIN TAG (UNLESS LISTED ELSEWHERE), TRUNK, ARMS OR LEGS; EXCISED DIAMETER 1.1 TO 2.0 CM 2008 DoD DESTRUCTION (EG, LASER SURGERY, ELECTROSURGERY, CRYOSURGERY, CHEMOSURGERY, SURGICAL CURETTEMENT), OF BENIGN LESIONS OTHER THAN SKIN TAGS OR CUTANEOUS VASCULAR PROLIFERATIVE LESIONS; UP TO 14 LESIONS 2008 DoD FITTING OF SPECTACLES, EXCEPT FOR APHAKIA; MONOFOCAL 2008 DoD PHYS/OTH QUALIFIED HEALTH HAND PACKER/PACKAGER QUALIFIED,EDUCATION ,TRAIN,LICENSURE/RE GULATION (WHEN APPLICABLE) EDUC SER RENDERED TO PATS IN A GRP SETTING (EG,,OBESIT Y,OR DIABETIC INSTRUCT) 2008 [facility] AUDIOMETRIC TESTING OF GROUPS 2008 DoD Psychotherapy Indiv Approx 45 Min W/ Medical Evaluation & Management Psychotherapy Indiv Approx 45 Min W/ Medical Evaluation & Management [id number] 2010 [facility] Audiometry Group Testing Audiometry Group Testing [id number] 2010 JACINDA BERRY [facility] Clinical Social Work Individual Outpatient Counseling 30 Minutes Clinical Social Work Individual Outpatient Counseling 30 Minutes [id number] 2010 NAGI ORTIZ [facility] Fiberoptic Examinations Anoscopy Fiberoptic Examinations Anoscopy 03028 2008 JACQUELINE KING [facility] Polysomnography With Four Or More Additional Sleep Parameters 2008 JACQUELINE SHAW [facility] Excision Of Lesion Trunk Benign 1.1 to 2cm Excision Of Lesion Trunk Benign 1.1 to 2cm 38633 2008 ORTIZ PETERSON [facility] Destruction Of Flat Warts By Cryosurgery Up To 14 Lesions 2008 ORTIZ PETERSON [facility] Spectacles Services Fitting Monofocal Except For Aphakia Spectacles Services Fitting Monofocal Except For Aphakia [id number] 2008 RONNIE JAVIER [facility] Measurements Taken [facility] Ophthalmological New Patient Start Comprehensive Care Ophthalmological New Patient Start Comprehensive Care [id number] 2008 RONNIE JAVIER Determination Of Refractive State Determination Of Refractive State 40067 2008 RONNIE JAVIER Tape, waterproof, per 18 sq. in. 2007 BERTRAM YONNY W [facility] Orthopedic Strapping Orthopedic Strapping 14081 2007 BERTRAM YONNY W x10 min - kinesiotaping for Lumbo-sacral pain [facility] Osteopathic Manip Treatment (OMT) 1-2 Body Regions Involved Osteopathic Manip Treatment (OMT) 1-2 Body Regions Involved 41390 2007 JOSE BURDENT W [facility]am[facility] Tape, waterproof, per 18 sq. in. 2007 BERTRAM YONNY W [facility] Orthopedic Strapping Orthopedic Strapping 96771 2007 BERTARM YONNY W x10 min - kinesiotaping for SI dysfunction/ lumbo-sacral pain DoD Osteopathic Manip Treatment (OMT) 1-2 Body Regions Involved Osteopathic Manip Treatment (OMT) 1-2 Body Regions Involved 42752 2007 JOSE BURDENT W x10 min - lumbo-pelvic gapping technique. [facility] Physical Therapy Service Re-Evaluation Physical Therapy Service Re-Evaluation 65090 2007 YONNY BURDEN W DoD Modalities Heat Hot Packs Modalities Heat Hot Packs 05757 2007 YOSI THORNTON 20m r knee DoD Physical Therapy: ___ Se ion Segments, 15 Minutes Each Physical Therapy: ___ Session Segments, 15 Minutes Each 31057 2007 YOSI THORNTON 10m DoD Mobilization Soft Ti ue Mobilization Soft Tissue 36772 2007 YOSI THORNTON x15 min - soft tissue mobilization/MFR to L hamstring DoD Physical Therapy Mobilization Joint Physical Therapy Mobilization Joint 60276 2007 YOSI THORNTON DoD Modalities Heat Hot Packs Modalities Heat Hot Packs 07573 2007 YOSI THORNTON 20m r knee DoD Physical Therapy: ___ Se ion Segments, 15 Minutes Each Physical Therapy: ___ Session Segments, 15 Minutes Each 84316 2007 YOSI THORNTON 10m DoD Physical Therapy: ___ Se ion Segments, 15 Minutes Each Physical Therapy: ___ Session Segments, 15 Minutes Each 65972 2007 YOSI THORNTON 10m DoD Physical Therapy Mobilization Joint Physical Therapy Mobilization Joint 29389 2007 YOSI THORNTON DoD Modalities Heat Hot Packs Modalities Heat Hot Packs 07369 2007 YOSI THORNTON 20m r knee DoD Physical Therapy: ___ Se ion Segments, 15 Minutes Each Physical Therapy: ___ Session Segments, 15 Minutes Each 15991 2007 YOSI THORNTON 10m DoD Modalities Heat Hot Packs Modalities Heat Hot Packs 22861 2007 YOSI THORNTON 20m r knee DoD Physical Therapy Mobilization Joint Physical Therapy Mobilization Joint 87534 2007 YOSI THORNTON DoD Modalities Electrical Stimulation Device Placement Modalities Electrical Stimulation Device Placement 85167 2007 YOSI THORNTON 8m w/us r knee DoD Modalities Cryotherapy Cold Packs Modalities Cryotherapy Cold Packs 09783 2007 YOSI THORNTON 10m r knee DoD Modalities Ultrasound Modalities Ultrasound 55280 2007 YOSI THORNTON 8m w/estim r knee DoD Modalities Ultrasound Modalities Ultrasound 92220 2007 YOSI THORNTON 8m w/estim r knee DoD Modalities Cryotherapy Cold Packs Modalities Cryotherapy Cold Packs 44453 2007 YOSI THORNTON 10m r knee DoD Modalities Electrical Stimulation Device Placement Modalities Electrical Stimulation Device Placement 49724 2007 YOSI THORNTON 8m w/us r knee DoD Modalities Electrical Stimulation Device Placement Modalities Electrical Stimulation Device Placement 80598 2007 YOSI THORNTON 8m w/us r h/s DoD Modalities Cryotherapy Cold Packs Modalities Cryotherapy Cold Packs 15831 2007 YOSI THORNTON 10m r h/s DoD Modalities Ultrasound Modalities Ultrasound 43036 2007 YOSI THORNTON 8m w/estim r h/s DoD Modalities Ultrasound Modalities Ultrasound 94669 2007 YOSI THORNTON 8m w/estim r knee DoD Modalities Electrical Stimulation Device Placement Modalities Electrical Stimulation Device Placement 35163 2007 YOSI THORNTON 8m w/us r knee DoD Modalities Cryotherapy Cold Packs Modalities Cryotherapy Cold Packs 00549 2007 YOSI HTORNTON 10m r knee DoD Modalities Cryotherapy Cold Packs Modalities Cryotherapy Cold Packs 38507 2007 YOSI THORNTON 10m r h/s DoD Modalities Electrical Stimulation Device Placement Modalities Electrical Stimulation Device Placement 66356 2007 YOSI THORNTON 8m w/us r h/s DoD Modalities Ultrasound Modalities Ultrasound 99294 2007 YOSI THORNTON 8m w/estim r h/s DoD Physical Therapy Service Re-Evaluation Physical Therapy Service Re-Evaluation 33901 2007 YONNY BURDEN W DoD Physical Therapy Service Re-Evaluation Physical Therapy Service Re-Evaluation 07762 2007 YONNY BURDEN W DoD Modalities Heat Hot Packs Modalities Heat Hot Packs 16839 2007 YOSI THORNTON 20m r knee DoD Modalities Ultrasound Modalities Ultrasound 47466 2007 YOSI THORNTON 8m r knee DoD Sigmoidoscopy Fiberoptic (Therapeutic ) Sigmoidoscopy Fiberoptic (Therapeutic ) 67412 2007 BENI PEDROZA DoD Physical Therapy Service Re-Evaluation Physical Therapy Service Re-Evaluation 17745 2007 YONNY BURDEN W DoD Modalities Heat Hot Packs Modalities Heat Hot Packs 89547 2007 YOSI THORNTON D 20m r knee DoD Modalities Ultrasound Modalities Ultrasound 41442 2007 ARTERSIA KINSEYY D 8m r knee DoD Modalities Ultrasound Modalities Ultrasound 34406 2007 ARTERSIA KINSEYY D 8m r knee DoD Modalities Heat Hot Packs Modalities Heat Hot Packs 44119 2007 ARTERYOSI KINSEY D 20m r knee DoD Modalities Heat Hot Packs Modalities Heat Hot Packs 42900 2007 YOSI THORNTON D 20m r knee DoD Modalities Ultrasound Modalities Ultrasound 84273 2007 YOSI THORNTON D 8m r knee DoD Physical Therapy Service Evaluation Physical Therapy Service Evaluation 05699 2007 YONNY BURDEN Spectacles Services Fitting Monofocal Except For Aphakia Spectacles Services Fitting Monofocal Except For Aphakia 93645 2007 AKHIL MEJIA Determination Of Refractive State Determination Of Refractive State 26092 2007 AKHIL MEJIA Ophthalmological New Patient Start Comprehensive Care Ophthalmological New Patient Start Comprehensive Care 69652 2007 AKHIL MEJIA Physical Therapy: ___ Se ion Segments, 15 Minutes Each Physical Therapy: ___ Session Segments, 15 Minutes Each 68499 2007 WILLIAM DURHAM Modalities Ultrasound Modalities Ultrasound 66436 2007 WILLIAM DURHAM Modalities Electrical Stimulation Unattended Modalities Electrical Stimulation Unattended 61430 2007 WILLIAM DURHAM Modalities Heat Hot Packs Modalities Heat Hot Packs 66155 2007 WILLIAM DURHAM Physical Therapy: ___ Se ion Segments, 15 Minutes Each Physical Therapy: ___ Session Segments, 15 Minutes Each 54747 2007 WILLIAM DURHAM Modalities Ultrasound Modalities Ultrasound 08514 2007 WILLIAM DURHAM Modalities Electrical Stimulation Unattended Modalities Electrical Stimulation Unattended 74757 2007 WILLIAM DURHAM Modalities Heat Hot Packs Modalities Heat Hot Packs 54835 2007 WILLIAM DURHAM Physical Therapy: ___ Se ion Segments, 15 Minutes Each Physical Therapy: ___ Session Segments, 15 Minutes Each 00983 2007 TATI DURHAMFrancisco [facility] Modalities Ultrasound Modalities Ultrasound 24666 2007 HERMINIO WILLIAM [facility] Modalities Electrical Stimulation Unattended Modalities Electrical Stimulation Unattended 39408 2007 DURHAMWILLIAM [facility]am[facility] Modalities Heat Hot Packs Modalities Heat Hot Packs 93184 2007 HERMINIO WILLIAM [facility] Physical Therapy: ___ Se ion Segments, 15 Minutes Each Physical Therapy: ___ Session Segments, 15 Minutes Each 75211 2007 HERMINIOWILLIAM Familia Modalities Ultrasound Modalities Ultrasound 22322 2007 HERMINIO WILLIAM [facility] Modalities Electrical Stimulation Unattended Modalities Electrical Stimulation Unattended 27286 2007 HERMINIO WILLIAM [facility] Modalities Heat Hot Packs Modalities Heat Hot Packs 94865 2007 HERMINIO WILLIAM [facility] Physical Therapy: ___ Se ion Segments, 15 Minutes Each Physical Therapy: ___ Session Segments, 15 Minutes Each 80173 2007 HERMINIO WILLIAM [facility] Modalities Ultrasound Modalities Ultrasound 09633 2007 HERMINIO WILLIAM [facility] Modalities Electrical Stimulation Unattended Modalities Electrical Stimulation Unattended 35638 2007 HERMINIO WILLIAM [facility] Modalities Heat Hot Packs Modalities Heat Hot Packs 63159 2007 HERMINIO WILLIAM [facility] Physical Therapy: ___ Se ion Segments, 15 Minutes Each Physical Therapy: ___ Session Segments, 15 Minutes Each 33218 2007 DERRELL GARCIA [facility] Modalities Ultrasound Modalities Ultrasound 84520 2007 DERRELL GARCIA Modalities Electrical Stimulation Modalities Electrical Stimulation 84108 2007 DERRELL GARCIA Modalities Heat Hot Packs Modalities Heat Hot Packs 07860 2007 DERRELL GARCIA [facility] Physician Supervised Services Provision Of Educational Supplies Physician Supervised Services Provision Of Educational Supplies 51237 2006 ONDINA JOHNSON [facility] Physician Supervised Specimen Handling / Transfer Non-office To Lab Physician Supervised Specimen Handling / Transfer Non-office To Lab 94953 2006 EHSAN LUKE [facility] Audiometry Group Testing Audiometry Group Testing 43856 2006 TRACE DOZIER Ear Protector Attenuation Measurements Ear Protector Attenuation Measurements 92168 2006 TRACE DOZIER Patient education, not otherwise cla ified, non-physician provider, group, per se ion 2006 TRACE DOZIER Audiometry Group Testing Audiometry Group Testing 63777 2012 ROBBI VARGHESE JR [facility] Psychotherapy Individual Approx 30 Min W/ Medical Evaluation & Management 2012 MIGUELITO MARQUES [facility] Psychotherapy Indiv Approx 45 Min W/ Medical Evaluation & Management 2012 MIGUELITO MARQUES Non-Physician Phone Call To Patient/Provider Brief (5-10min) Non-Physician Phone Call To Patient/Provider Brief (5-10min) 56617 2012 LEWIS LEON Non-Physician Phone Call To Patient/Provider Brief (5-10min) Non-Physician Phone Call To Patient/Provider Brief (5-10min) 14687 2012 LEWIS LEON Medical Nutrition Therapy Group (2 or More Individuals) Each 30 Minutes Medical Nutrition Therapy Group (2 or More Individuals) Each 30 Minutes 89854 2012 RUDDY WRIGHT [facility] Ultrasonic Guidance Procedures Ultrasonic Guidance Procedures 86401 2012 RUBEN MENJIVAR Nerve Ablation Extremity(s), Trunk 2012 RUBEN MENJIVAR Psychotherapy Individual Approximately 30 Minutes Psychotherapy Individual Approximately 30 Minutes 40416 2012 LACIE WOOD Psychiatric Diagnostic Evaluation Review of Records and Reports Psychiatric Diagnostic Evaluation Review of Records and Reports 15289 2012 LACIE WOOD Non-Physician Phone Call To Patient/Provider Brief (5-10min) Non-Physician Phone Call To Patient/Provider Brief (5-10min) 66200 2012 LEWIS LEON Psychotherapy Individual Approx 75-80 Min With Medical Evaluation & Management Psychotherapy Individual Approx 75-80 Min With Medical Evaluation & Management 27780 2012 MIGUELITO MARQUES BANERJEESARAH Barbosa Psychotherapy Indiv Approx 45 Min W/ Medical Evaluation & Management Psychotherapy Indiv Approx 45 Min W/ Medical Evaluation & Management 74525 2012 KADIE BORJAS Non-Physician Phone Call To Pt/Provider Intermed (11-20 min) Non-Physician Phone Call To Pt/Provider Intermed (11-20 min) 87764 2011 LEWIS LEON Injection Of Trigger Point(s) One Or Two Muscle Group(s) Injection Of Trigger Point(s) One Or Two Muscle Group(s) 30414 2011 RUBEN MENJIVAR Ultrasonic Guidance Procedures Ultrasonic Guidance Procedures 76207 2011 RUBEN MENJIVAR Nerve Block Intercostal Single Block 2011 RUBEN MENJIVAR Coordinated care fee, maintenance rate 2011 LEWIS LEON Spectacles Services Fitting Monofocal Except For Aphakia Spectacles Services Fitting Monofocal Except For Aphakia 43146 2011 YOANDY CHAN Measurements of anatomical facial characteristics for this patient are taken into account regarding frame selection and parameters. The laboratory specifications include the spectacle prescription, pupillary distance, and any special instructions pertaining to this patient's spectacle requirements. Final adjustment of the spectacles to the visual axes and anatomical topography are considered inherent to the initial comprehensive fitting. All supporting documentation is contained within this record and/or within the [facility] ordering system. S9 50/22 Sawfly insert 50/19 M40 50/24 [facility] Determination Of Refractive State Determination Of Refractive State 04762 2011 YOANDY CHAN Ophthalmological New Patient Start Comprehensive Care Ophthalmological New Patient Start Comprehensive Care 88466 2011 YOANDY CHAN Psychotherapy Indiv Approx 45 Min W/ Medical Evaluation & Management Psychotherapy Indiv Approx 45 Min W/ Medical Evaluation & Management 37403 2011 LENNIE CHAO Coordinated care fee, maintenance rate 2011 LEWIS LEON Psychotherapy Indiv Approx 45 Min W/ Medical Evaluation & Management Psychotherapy Indiv Approx 45 Min W/ Medical Evaluation & Management 93587 2011 LENNIE CHAO Audiometry Group Testing Audiometry Group Testing 38273 2011 ROBBI VARGHESE JR Coordinated care fee, maintenance rate 2011 LEWIS LEON Non-Physician Phone Call To Patient/Provider Brief (5-10min) Non-Physician Phone Call To Patient/Provider Brief (5-10min) 00124 2011 LEWIS LEON Psychotherapy Indiv Approx 45 Min W/ Medical Evaluation & Management Psychotherapy Indiv Approx 45 Min W/ Medical Evaluation & Management 88749 2011 LENNIE CHAO Non-Physician Phone Call To Patient/Provider Brief (5-10min) Non-Physician Phone Call To Patient/Provider Brief (5-10min) 89770 2011 LEWIS LEON Non-Physician Phone Call To Pt/Provider Intermed (11-20 min) Non-Physician Phone Call To Pt/Provider Intermed (11-20 min) 85271 2011 LEWIS LEON Spectacles Services Fitting Monofocal Except For Aphakia Spectacles Services Fitting Monofocal Except For Aphakia 68176 2011 SAE DE SANTIAGO Determination Of Refractive State Determination Of Refractive State 96559 2011 SAE DE SANTIAGO Ophthalmological New Patient Start Comprehensive Care Ophthalmological New Patient Start Comprehensive Care 46106 2011 SAE DE SANTIAGO Coordinated care fee, maintenance rate 2011 KIRSTNE GRAY Psychotherapy Indiv Approx 45 Min W/ Medical Evaluation & Management Psychotherapy Indiv Approx 45 Min W/ Medical Evaluation & Management 89548 2011 LENNIE CHAO Coordinated care fee, maintenance rate 2011 KIRSTEN GRAY Clinical Social Work Individual Outpatient Counseling 45 Minutes Clinical Social Work Individual Outpatient Counseling 45 Minutes 02130 2010 NAGI ORTIZ [facility] Coordinated care fee, maintenance rate 2010 KIRSTEN GRAY Psychotherapy Indiv Approx 45 Min W/ Medical Evaluation & Management Psychotherapy Indiv Approx 45 Min W/ Medical Evaluation & Management 09230 2010 LENNIE CHAO Coordinated care fee, maintenance rate 2010 KIRSTEN GRAY Clinical Social Work Individual Outpatient Counseling 45 Minutes Clinical Social Work Individual Outpatient Counseling 45 Minutes 47799 2010 NAGI [facility] Coordinated care fee, maintenance rate 2010 KIRSTEN GRAY [facility] Psychotherapy Indiv Approx 45 Min W/ Medical Evaluation & Management Psychotherapy Indiv Approx 45 Min W/ Medical Evaluation & Management [id number] 2010 LENNIE CHAO [facility] Exercise equipment 2010 BRITTNEY MCCLELLAND elbow pad x 1, alli wrap x 1 [facility] Occupational Therapy Evaluation Occupational Therapy Evaluation [id number] 2010 BRITTNEY MCCLELLAND [facility] Clinical Social Work Individual Outpatient Counseling 45 Minutes Clinical Social Work Individual Outpatient Counseling 45 Minutes [id number] 2010 NAGI ORTIZ [facility] Coordinated care fee, maintenance rate 2010 KIRSTEN GRAY [facility] Clinical Social Work Individual Outpatient Counseling 45 Minutes Clinical Social Work Individual Outpatient Counseling 45 Minutes [id number] 2010 NAGI ORTIZ [facility] Coordinated care fee, maintenance rate 2010 SUJATHA LEEANNMICAH CRAWFORD [facility] Chiropractic Manip Treatmt (CMT) Spinal [place] Chiropractic Manip Treatmt (CMT) Spinal [place] 40425 2010 AKUA DICKERSON [facility] Modalities Heat Hot Packs Modalities Heat Hot Packs 72638 2010 AKUA DICKERSON 20 min total [facility] Physical Therapy Ma age Physical Therapy Massage 52962 2010 AKUA DICKERSON 8 min total [facility] Modalities Electrical Stimulation Attended Each 15 Minutes Modalities Electrical Stimulation Attended Each 15 Minutes 23654 2010 AKUA DICKERSON 20 min total [facility] Repair And Refitting Gla es (Not For Aphakia) Repair And Refitting Glasses (Not For Aphakia) 78585 2010 DELETED_YOANDY GALINDO [facility] Non-Physician Phone Call To Patient/Provider Brief (5-10min) Non-Physician Phone Call To Patient/Provider Brief (5-10min) 16135 2010 KIRSTEN GRAY [facility] Non-Physician Phone Call To Patient/Provider Brief (5-10min) Non-Physician Phone Call To Patient/Provider Brief (5-10min) 47566 2010 KIRSTEN GRAY [facility] Psychotherapeutic Rehabilitation Cognitive Psychotherapeutic Rehabilitation Cognitive 10902 2010 NAGI ORTIZ [facility] Psychiatric Diagnostic Evaluation Review of Records and Reports Psychiatric Diagnostic Evaluation Review of Records and Reports 27954 2010 NAGI ORTIZ [facility] Patient Training And Self-Care Skills Additional 15 Minutes Patient Training And Self-Care Skills Additional 15 Minutes 40560 2010 NAGI ORTIZ [facility] Clinical Social Work Individual Outpatient Counseling 45 Minutes Clinical Social Work Individual Outpatient Counseling 45 Minutes 16930 2010 NAGI ORTIZ [facility] Psychotherapy Individual Approx 30 Min W/ Medical Evaluation & Management Psychotherapy Individual Approx 30 Min W/ Medical Evaluation & Management 29300 2010 LENNIE CHAO Non-Physician Phone Call To Patient/Provider Brief (5-10min) Non-Physician Phone Call To Patient/Provider Brief (5-10min) 56001 2010 JERRY SIDHU [facility] Clinical Social Work Individual Outpatient Counseling 45 Minutes Clinical Social Work Individual Outpatient Counseling 45 Minutes 87102 2010 NAGI ORTIZ [facility] Patient Training And Self-Care Skills Additional 15 Minutes Patient Training And Self-Care Skills Additional 15 Minutes 64977 2010 NAGI ORTIZ [facility] Psychiatric Diagnostic Evaluation Review of Records and Reports Psychiatric Diagnostic Evaluation Review of Records and Reports 36810 2010 NAGI ORTIZ [facility] Psychotherapeutic Rehabilitation Cognitive Psychotherapeutic Rehabilitation Cognitive 05329 2010 NAGI ORTIZ [facility] Psychotherapy Individual Approx 30 Min W/ Medical Evaluation & Management Psychotherapy Individual Approx 30 Min W/ Medical Evaluation & Management 58560 2010 LENNIE CHAO Psychotherapy Individual Approx 30 Min W/ Medical Evaluation & Management Psychotherapy Individual Approx 30 Min W/ Medical Evaluation & Management 96175 2010 LENNIE CHAO Patient Counseling Medical Management Individual Patient Patient Counseling Medical Management Individual Patient [id number] 2010 AKHIL AGUILERA Physical Medicine - Group Physical Therapy Se ion Physical Medicine - Group Physical Therapy Session 17219 2010 AKHIL AGUILERA Cognitive Functions Mini-Mental Status Exam 2010 NAGI ORTIZ [facility] Psychotherapeutic Rehabilitation Cognitive Psychotherapeutic Rehabilitation Cognitive 49777 2010 NAGI ORTIZ [facility] Psychiatric Diagnostic Evaluation Review of Records and Reports Psychiatric Diagnostic Evaluation Review of Records and Reports 43321 2010 NAGI ORTIZ Clinical Social Work Individual Outpatient Counseling 75-80 Minutes Clinical Social Work Individual Outpatient Counseling 75-80 Minutes 32536 2010 NAGI ORTIZ Clinical Social Work Individual Outpatient Counseling 75-80 Minutes Clinical Social Work Individual Outpatient Counseling 75-80 Minutes 84042 2010 NAGI ORTIZ Psychiatric Diagnostic Evaluation Review of Records and Reports Psychiatric Diagnostic Evaluation Review of Records and Reports 61609 2010 NAGI ORTIZ Psychotherapeutic Rehabilitation Cognitive Psychotherapeutic Rehabilitation Cognitive 65757 2010 NAGI ORTIZ Cognitive Functions Mini-Mental Status Exam 2010 NAGI ORTIZ Psychotherapeutic Rehabilitation Cognitive Psychotherapeutic Rehabilitation Cognitive 32799 2010 NAGI ORTIZ Cognitive Functions Mini-Mental Status Exam 2010 NAGI ORTIZ Psychiatric Diagnostic Evaluation Review of Records and Reports Psychiatric Diagnostic Evaluation Review of Records and Reports 65048 2010 NAGI ORTIZ Clinical Social Work Individual Outpatient Counseling 45 Minutes Clinical Social Work Individual Outpatient Counseling 45 Minutes 45247 2010 NAGI ORTIZ Scanning Computerized Ophthalmic Diagnostic Imaging Optic Nerve Scanning Computerized Ophthalmic Diagnostic Imaging Optic Nerve 65501 2010 YOANDY CHAN Attached GDX testiong is normal for each eye. NFI OD 18, OS 15. Scant nerve fiber thinning. NOrmal distribution. Healthy retina. [facility] Visual Gray Test Extended Examination Visual Gray Test Extended Examination 79775 2010 YOANDY CHAN Ophthalmological Prior Patient Start Intermediate Level Care Ophthalmological Prior Patient Start Intermediate Level Care [id number] YOANDY CHAN Extensive Color Vision Testing Extensive Color Vision Testing 19678 2010 YOANDY CHAN Normal D-15 colcor vision testing for each eye [facility] Visual Gray Test Extended Examination Visual Gray Test Extended Examination 78612 2010 YOANDY CHAN VF30-2 outside normal limits for both eyes - two attempts [facility] Ophthalmological Prior Patient Start Intermediate Level Care Ophthalmological Prior Patient Start Intermediate Level Care [id number] YOANDY CHAN Clinical Social Work Individual Outpatient Counseling 45 Minutes Clinical Social Work Individual Outpatient Counseling 45 Minutes 30759 2010 NAGI ORTIZ Psychiatric Diagnostic Evaluation Comprehensive Examination Psychiatric Diagnostic Evaluation Comprehensive Examination 12252 2010 MARY CHAOON Herrera [facility] Clinical Social Work Individual Outpatient Counseling 45 Minutes Clinical Social Work Individual Outpatient Counseling 45 Minutes 48981 2010 NAGI ORTIZ [employer] Fitting Monofocal Except For Aphakia [employer] Fitting Monofocal Except For Aphakia 25715 2010 YOANDY CHAN optical devcies measured and ordered - large frames [facility] Determination Of Refractive State Determination Of Refractive State 40090 2010 YOANDY CHAN Ophthalmological New Patient Start Comprehensive Care Ophthalmological New Patient Start Comprehensive Care 42498 2010 YOANDY CHAN Clinical Social Work Individual Outpatient Counseling 45 Minutes Clinical Social Work Individual Outpatient Counseling 45 Minutes 40680 2010 NAGI ORTIZ Clinical Social Work Individual Outpatient Counseling 45 Minutes Clinical Social Work Individual Outpatient Counseling 45 Minutes 68013 2010 NAGI ORTIZ [facility] Clinical Social Work Individual Outpatient Counseling 45 Minutes Clinical Social Work Individual Outpatient Counseling 45 Minutes 82908 2010 NAGI ORTIZ [facility] Clinical Social Work Individual Outpatient Counseling 45 Minutes Clinical Social Work Individual Outpatient Counseling 45 Minutes 86647 2010 NAGI ORTIZ [facility] Social History Combined list of available smoking, tobacco, and other social history from Department of Defense and Veterans Affairs facilities. Social History Type Response Date Comment Sourc e Tobacco smoking status NHIS LIFETIME NON-TOBACCO USER [facility] of tobacco use LIFETIME NON-USER OF TOBACCO 10/24/2012 [facility] This section is an empty social history section. [employer]D Advance Directives List of completed, amended, or rescinded Advance Directives on record at Department of Veterans Affairs facilities. An actual copy of the Directive is not included. Date Advance Directive Provider Source 05/28/2013 ADVANCE DIRECTIVE DISCUSSION SA [facility] 12/04/2012 ADVANCE DIRECTIVE DISCUSSION IRA [facility] 12/04/2012 ADMINISTRATIVE NOTE HEATHER SCHULTZ [facility]
== END 2024-10-31 15:47 | disposition home or self-care (01) ==
DX: E23.6 Other disorders of pituitary gland (principal)
CPT/HCPCS: 70553; A9577